=== PATIENT | male | born 1930 | race Caucasian/White ===

== ENCOUNTER 2016-06-22 10:50 | Outpatient (CLI) ==
--- NOTE | 2016-06-22 12:25 | CT ---
EXAM: CT ABDOMEN AND PELVIS HISTORY: Abdominal pain, diarrhea, rectal bleeding TECHNIQUE: CT abdomen and pelvis without intravenous contrast. Images were reconstructed using 3 m m section thickness. Reformations were prepared. COMPARISON: None FINDINGS: Diagnostic limitations exist without including contrast enhanced images. No obvious focal hepatic o r splenic lesions. Gallbladder within normal limits. No pancreatic or adrenal pathology identified . Bilateral renal cortical cystic masses most of which are small, other than superiorly on the righ t where an entity measures up to 7 cm. No hydronephrosis or nephrolithiasis. No evidence of uretera l obstruction. Moderate aortic atherosclerosis. No aneurysmal caliber of the aorta. No definite gastric abnormality. Normal appendix. Fluid consistency stool within portions of the c olon consistent with the patient's history of diarrhea. No convincing evidence of active enteritis or colitis. No notable diverticula of the colon. Urinary bladder is decompressed, grossly unremark able. Mild prostate enlargement. There is no ascites. Mildly prominent fatty bilateral inguinal and. 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 Superimposed c onsolidations suggesting pneumonia. No pneumoperitoneum. IMPRESSION: 1. Fluid consistency stool within portions of the colon consistent with the patient's history of di arrhea. No convincing evidence of active enteritis or colitis. No notable diverticula of the colon . 2. Consolidations in the lung bases suggesting pneumonia. Correlate clinically. 3. Bilateral renal cortical cystic masses probably representing cysts. These can be correlated wit h ultrasound. 4. Moderate atherosclerotic disease. 5. Mild prostate enlargement.
== END 2016-06-22 10:51 | disposition home or self-care (01) ==
LOC: RAD 10:50
PROVIDERS: ATTEND Family Medicine
DX: A09 Infectious gastroenteritis and colitis, unspecified (principal)
CPT/HCPCS: 36415

== ENCOUNTER 2016-09-03 11:46 | Outpatient (CLI) ==
[2016-09-03 12:01] LABS: BASOPHILS # (AUTO) 0.1 K/uL (0-0.2); BASOPHILS % (AUTO) 0.8 % (0.0-3.0); EOSINOPHILS # (AUTO) 0.1 K/ul (0.0-0.7); EOSINOPHILS % (AUTO) 1.4 % (0.0-7.0); HEMATOCRIT 30.9 % (42.0-52.0); HEMOGLOBIN 10.6 g/dl (14.0-18.0); IMMATURE GRANULOCYTE % (AUTO) 0.3 % (0.0-5.0); LYMPHOCYTES # (AUTO) 1.9 K/uL (0.60-3.4); LYMPHOCYTES % (AUTO) 29.9 (10.0-50.0); MEAN CORPUSCULAR HEMOGLOBIN 32.3 pg (27.0-31.0); MEAN CORPUSCULAR HGB CONC 34.3 (31.8-35.4); MEAN CORPUSCULAR VOLUME 94.2 fl (80.0-94.0); MONOCYTES # (AUTO) 0.4 K/uL (0.4-2.0); MONOCYTES % (AUTO) 6.1 (0-10); NEUTROPHILS # (AUTO) 3.9 K/ul (2.0-6.9); NEUTROPHILS % (AUTO) 61.5; PLATELET COUNT 277 10^3/uL (140-440); RED BLOOD COUNT 3.28 10^6/ul (4.70-6.10); WHITE BLOOD COUNT 6.35 K/ul (4.2-10.2)
[2016-09-03 12:18] LABS: ALBUMIN 3.4 g/dL (3.4-5.0); ALBUMIN/GLOBULIN RATIO 0.85; ANION GAP 11.3; BILIRUBIN,TOTAL 0.3 mg/dL (0.00-1.20); BUN/CREATININE RATIO 23.28; CALCIUM 9.9 mg/dL (8.2-10.2); CREATININE 1.46 mg/dL (0.60-1.10); POTASSIUM 5.3 mmol/L (3.5-5.1); TOTAL PROTEIN 7.4 g/dL (5.8-8.1)
[2016-09-05 07:11] LABS: IMMUNOGLOBULIN M, QN, SERUM 47 mg/dL (15-143)
== END 2016-09-03 11:47 | disposition home or self-care (01) ==
LOC: LAB 11:46
PROVIDERS: ATTEND Internal Medicine Hematology & Oncology
DX: D64.9 Anemia, unspecified (principal)
CPT/HCPCS: 36415; 80053; 85025; 86320

== ENCOUNTER 2016-12-20 11:03 | Outpatient (CLI) ==
[2016-12-20 11:34] LABS: BASOPHILS % (AUTO) 0.6 % (0.0-3.0); EOSINOPHILS # (AUTO) 0.1 K/ul (0.0-0.7); EOSINOPHILS % (AUTO) 1.1 % (0.0-7.0); HEMATOCRIT 26.3 % (42.0-52.0); HEMOGLOBIN 9.1 g/dl (14.0-18.0); IMMATURE GRANULOCYTE % (AUTO) 0.2 % (0.0-5.0); LYMPHOCYTES # (AUTO) 1.5 K/uL (0.60-3.4); LYMPHOCYTES % (AUTO) 28.1 (10.0-50.0); MEAN CORPUSCULAR HGB CONC 34.6 (31.8-35.4); MEAN CORPUSCULAR VOLUME 95.3 fl (80.0-94.0); MONOCYTES # (AUTO) 0.4 K/uL (0.4-2.0); MONOCYTES % (AUTO) 6.8 (0-10); NEUTROPHILS # (AUTO) 3.4 K/ul (2.0-6.9); NEUTROPHILS % (AUTO) 63.2; PLATELET COUNT 219 10^3/uL (140-440); RED BLOOD COUNT 2.76 10^6/ul (4.70-6.10); WHITE BLOOD COUNT 5.44 K/ul (4.2-10.2)
[2016-12-20 11:56] LABS: ALBUMIN 3.3 g/dL (3.4-5.0); ALBUMIN/GLOBULIN RATIO 0.89; ANION GAP 11.3; BILIRUBIN,TOTAL 0.33 mg/dL (0.00-1.20); CALCIUM 9.6 mg/dL (8.2-10.2); CREATININE 1.1 mg/dL (0.60-1.10); POTASSIUM 4.3 mmol/L (3.5-5.1)
[2016-12-21 15:17] LABS: IMMUNOGLOBULIN M, QN, SERUM 32 mg/dL (15-143)
== END 2016-12-20 11:04 | disposition home or self-care (01) ==
LOC: LAB 11:03
PROVIDERS: ATTEND Internal Medicine Hematology & Oncology
DX: D47.2 Monoclonal gammopathy (principal)
CPT/HCPCS: 36415; 80053; 85025; 86320

== ENCOUNTER 2017-03-04 10:18 | Outpatient (CLI) ==
[2017-03-04 10:56] LABS: BASOPHILS % (AUTO) 0.7 % (0.0-3.0); EOSINOPHILS # (AUTO) 0.1 K/ul (0.0-0.7); HEMATOCRIT 29.7 % (42.0-52.0); HEMOGLOBIN 10.1 g/dl (14.0-18.0); LYMPHOCYTES # (AUTO) 1.8 K/uL (0.60-3.4); LYMPHOCYTES % (AUTO) 32.6 (10.0-50.0); MEAN CORPUSCULAR HEMOGLOBIN 33.3 pg (27.0-31.0); MONOCYTES # (AUTO) 0.4 K/uL (0.4-2.0); MONOCYTES % (AUTO) 6.8 (0-10); NEUTROPHILS # (AUTO) 3.2 K/ul (2.0-6.9); NEUTROPHILS % (AUTO) 57.9; PLATELET COUNT 225 10^3/uL (140-440); RED BLOOD COUNT 3.03 10^6/ul (4.70-6.10); WHITE BLOOD COUNT 5.46 K/ul (4.2-10.2)
[2017-03-04 11:16] LABS: ALBUMIN 3.6 g/dL (3.4-5.0); ALBUMIN/GLOBULIN RATIO 0.92; ANION GAP 12.4; BILIRUBIN,TOTAL 0.22 mg/dL (0.00-1.20); BUN/CREATININE RATIO 23.52; CALCIUM 9.8 mg/dL (8.2-10.2); CREATININE 1.36 mg/dL (0.60-1.10); POTASSIUM 5.4 mmol/L (3.5-5.1); TOTAL PROTEIN 7.5 g/dL (5.8-8.1)
[2017-03-06 15:14] LABS: IMMUNOGLOBULIN M, QN, SERUM 35 mg/dL (15-143)
== END 2017-03-04 10:19 | disposition home or self-care (01) ==
LOC: LAB 10:18
PROVIDERS: ATTEND Internal Medicine Hematology & Oncology
DX: D64.9 Anemia, unspecified (principal)
CPT/HCPCS: 36415; 80053; 85025; 86320

== ENCOUNTER 2017-05-02 14:42 | Outpatient (CLI) | END 2017-05-02 14:43 | disposition home or self-care (01) | LOC: LAB 14:42 | PROVIDERS: ATTEND Internal Medicine Hematology & Oncology | DX: D64.9 Anemia, unspecified (principal) | CPT/HCPCS: 36415; 80053; 82728; 83540; 83550; 85025; 86320 ==

== ENCOUNTER 2017-06-26 11:29 | Outpatient (CLI) | END 2017-06-26 11:30 | disposition home or self-care (01) | LOC: LAB 11:29 | PROVIDERS: ATTEND Internal Medicine Hematology & Oncology | DX: D64.9 Anemia, unspecified (principal) | CPT/HCPCS: 36415; 80053; 82728; 83540; 83550; 85025; 86320 ==

== ENCOUNTER 2017-07-10 11:55 | Outpatient (CLI) | payer OTHER ==
[2017-07-10 12:44] VITALS: BP 156/60; TEMP 97.6
[2017-07-10] MEDS ORDERED: PROCRIT SUBCUT STA (12:44)
== END 2017-07-10 11:56 | disposition home or self-care (01) ==
LOC: LAB 11:55
PROVIDERS: ATTEND Internal Medicine Hematology & Oncology
DX: D64.9 Anemia, unspecified (principal)
CPT/HCPCS: 36415; 80053; 82728; 83540; 83550; 85027; 96372

== ENCOUNTER 2017-07-12 15:01 | Outpatient (CLI) | payer OTHER | END 2017-07-12 15:02 | disposition home or self-care (01) | LOC: LAB 15:01 | PROVIDERS: ATTEND Internal Medicine Hematology & Oncology | DX: E87.5 Hyperkalemia (principal); D64.9 Anemia, unspecified | CPT/HCPCS: 36415; 84132 ==

== ENCOUNTER 2017-07-18 13:54 | Outpatient (CLI) | payer OTHER | END 2017-07-18 13:55 | disposition home or self-care (01) | LOC: LAB 13:54 | PROVIDERS: ATTEND Internal Medicine Hematology & Oncology | DX: D64.9 Anemia, unspecified (principal) | CPT/HCPCS: 36415; 84132; 85027 ==

== ENCOUNTER 2017-07-25 12:00 | Outpatient (CLI) | payer OTHER ==
[2017-07-25 12:36] VITALS: BP 161/72; TEMP 97.8
[2017-07-25] MEDS ORDERED: PROCRIT SUBCUT STA (12:36)
== END 2017-07-25 12:01 | disposition home or self-care (01) ==
LOC: LAB 12:00 → OPMED 12:01
PROVIDERS: ATTEND Internal Medicine Hematology & Oncology
DX: D64.9 Anemia, unspecified (principal)
CPT/HCPCS: 36415; 85027; 96372